=== PATIENT | male | born 1985 | race Caucasian/White ===

== ENCOUNTER 2019-07-17 10:14 | Emergency (ER) | payer MEDICAID ==
[~2019-07-17] VITALS: Ht 170.2 cm; Wt 61.4 kg
[2019-07-17] MEDS ORDERED: PERMETHRIN 5% 60 GM CREAM TP ONE (11:30)
[2019-07-17 12:17] VITALS: BP 134/75
== END 2019-07-17 12:26 | disposition home or self-care (01) ==
LOC: EMS 10:16
DX: K40.90 Unilateral inguinal hernia, without obstruction or gangrene, not specified as recurrent (principal); B85.1 Pediculosis due to Pediculus humanus corporis; F17.210 Nicotine dependence, cigarettes, uncomplicated; F12.90 Cannabis use, unspecified, uncomplicated; Z59.0 Homelessness